=== PATIENT | male | born 1990 | race Caucasian/White ===

== ENCOUNTER 2019-03-18 06:14 | Emergency (ER) | payer OTHER ==
[~2019-03-18] VITALS: Ht 180.3 cm; Wt 70.3 kg
[2019-03-18 06:30] VITALS: BP_SYST 122
[2019-03-18] MEDS ORDERED: NACL 0.9% 1,000 ML IV ONE (06:30)
--- NOTE | 2019-03-18 06:30 | NUR ---
0630 - Patient to ER bed 7 to gown for evaluation. Side rails up.
--- NOTE | 2019-03-18 06:30 | NUR ---
0630 - ER at bedside examining patient.
--- NOTE | 2019-03-18 06:30 | NUR ---
0630 - Pt admits to drinking alcohol last night, c/o n/v.
[2019-03-18 06:36] LABS: BASOPHILS % (AUTO) 0.4 % (0.0-2.0); EOSINOPHILS % (AUTO) 0.2 % (0.0-4.0); HEMOGLOBIN 14.3 g/dL (14.0-18.0); LYMPHOCYTES # (AUTO) 2.2 K/uL (1.0-5.5); LYMPHOCYTES % (AUTO) 18.1 % (20.5-51.5); MEAN CORPUSCULAR HEMOGLOBIN 29 pg (27-31); MEAN CORPUSCULAR HGB CONC 34 % (32-36); MEAN CORPUSCULAR VOLUME 86 fL (79.0-98.0); MONOCYTES # (AUTO) 0.4 K/uL (0.0-1.0); NEUTROPHILS # (AUTO) 9.4 K/uL (1.8-7.7); NEUTROPHILS % (AUTO) 78.3 % (40.0-70.0); PLATELET COUNT (AUTO) 320 K/uL (130-430); RED BLOOD CELL COUNT(AUTO) 4.91 MIL/uL (4.2-6.2); RED CELL DISTRIBUTION WIDTH 13.6 % (9.0-15.0); WHITE BLOOD COUNT (AUTO) 11.9 K/uL (4.8-10.8)
[2019-03-18] MEDS ORDERED: KETOROLAC TROMETHAMINE 30 MG VIAL IVP ONE (06:45)
[2019-03-18] MEDS ORDERED: ONDANSETRON HCL 4 MG/2 ML VIAL IVP ONE ×2 (06:45→09:30)
[2019-03-18 06:52] LABS: ANION GAP 20 (5-15); CHLORIDE 105 mmol/L (98-107); CREATININE 1.03 mg/dL (0.55-1.30); GLUCOSE 71 mg/dL (70-99); POTASSIUM 3.6 mmol/L (3.5-5.1); SODIUM SERUM 143 mmol/L (136-145); UREA NITROGEN, BLOOD 13 mg/dL (8-21)
[2019-03-18 06:54] LABS: GFR AFRICAN AMERICAN 111 mL/min (>90)
[2019-03-18 06:58] LABS: ALANINE AMINOTRANSFERASE 30 U/L (12-78); ALBUMIN 4.8 g/dL (3.4-4.8); ALCOHOL, BLOOD 124 mg/dL (<10); ASPARTATE AMINOTRANSFERASE 33 U/L (10-37)
[2019-03-18 06:59] LABS: ACETAMINOPHEN < 1 ug/mL (1-30)
--- NOTE | 2019-03-18 07:17 | NUR ---
0717 - Report given to LAMIN Brantley. All questions answered.
--- NOTE | 2019-03-18 07:20 | NUR ---
RECIEVED REPORT FROM RONAK TANG RN. WILL CONTINUE PLAN OF CARE.
--- NOTE | 2019-03-18 09:20 | NUR ---
Patient reported that he is both thristy and nauseaous, requested water. This was discussed with Dr. Bhagat who ordered Zofran which was given.
[2019-03-18 09:50] VITALS: BP_SYST 120
--- NOTE | 2019-03-18 09:50 | NUR ---
Patient given written and verbal discharge instructions and verbalizes understanding. ER MD discussed with patient the results and treatment provided. Patient in stable condition. ID arm band removed. IV catheter removed intact and dressing applied, no active bleeding. Rx of ZOFRAN given. Patient educated on pain management and to follow up with PMD. Pain Scale 0/10. Opportunity for questions provided and answered. Medication side effect fact sheet provided.
== END 2019-03-18 09:50 | disposition home or self-care (01) ==
LOC: SED 06:14
DX: K29.20 Alcoholic gastritis without bleeding (principal); F10.129 Alcohol abuse with intoxication, unspecified; Y90.6 Blood alcohol level of 120-199 mg/100 ml
CPT/HCPCS: 36415; 74021; 80053; 82550; 83690; 85025; 93005; 96361; 96374; 96375; 99284; G0480; G0481; G0482; J1885; J2405; J7030